=== PATIENT | male | born 1945 | race Caucasian/White ===

== ENCOUNTER 2024-04-03 14:26 | Outpatient (OUT) | payer OTHER, SELFPAY ==
--- NOTE | 2024-04-03 14:36 | ECG_ITS ---
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
[2024-04-03 15:18] LABS: Basophils Absolute Auto 0.1 10^3/uL (0.0-0.1); Basophils Percent Auto 1.7 % (0.2-2.0); Eosinophils Absolute Auto 0.7 10^3/uL (0.0-0.7); Eosinophils Percent Auto 10.4 % (0.9-7.0); Hematocrit 43.8 % (42.0-54.0); Hemoglobin 15.1 g/dL (14.0-18.0); Immature Granulocytes Abs Auto 0.01 10^3/uL (0.00-0.03); Immature Granulocytes Pct Auto 0.2 % (0.0-0.5); Lymphocytes Absolute Auto 1.4 10^3/uL (1.2-3.8); Lymphocytes Percent Auto 22.6 % (20.5-60.0); Mean Corpuscular HGB Conc 34.5 g/dL (29.9-35.2); Mean Corpuscular Volume 98.6 fL (80.0-94.0); Monocytes Absolute Auto 0.5 10^3/uL (0.3-0.8); Monocytes Percent Auto 8.1 % (1.7-12.0); Neutrophils Absolute Auto 3.6 10^3/uL (1.4-6.5); Platelet Count 153 10^3/uL (150-450); Red Blood Count 4.44 10^6/uL (4.70-6.10); Red Cell Distribution Width 12.8 % (11.0-15.0); White Blood Count 6.3 10^3/uL (4.0-11.0)
[2024-04-03 15:31] LABS: Anion Gap 9.3; BUN Creatinine Ratio 14.4; Calcium 9.1 mg/dL (8.5-10.1); Carbon Dioxide 30.7 mmol/L (21.0-32.0); Chloride 106 mmol/L (98-107); Estimated GFR (African America >60 (>=60); Estimated GFR (Non-African Ame >60 (>=60); Glucose 136 mg/dL (74-106); Sodium 142 mmol/L (136-145)
[2024-04-03 15:35] LABS: INR 1.04
== END 2024-04-03 14:27 | disposition home or self-care (01) ==
PROVIDERS: Family Provider Family Medicine; PCP Family Medicine; Visit Provider Urology
DX: Z01.810 Encounter for preprocedural cardiovascular examination (principal); Z01.812 Encounter for preprocedural laboratory examination; N20.0 Calculus of kidney
CPT/HCPCS: 80048; 85025; 85610; 85730; 93005

== ENCOUNTER 2024-04-10 07:47 | Day surgery (SDC) | payer OTHER, SELFPAY ==
[2024-04-03 14:45] VITALS: BP 148/84; PULSE 63; TEMP 36.4; O2SAT 97; BMI 25.2
[2024-04-10] VITALS (10 sets, daily range): BP systolic 110–151; BP diastolic 60–84; PULSE 60–69; TEMP 36–36.3; O2SAT 94–98; BMI 25.2
--- NOTE | 2024-04-10 07:45 | XR_ITS ---
The [address] [address] Patient Name: JENNIFER JUNIOR MRN: [id number] date: 1945 Sex: M Assigned Patient Location: [facility] Current Patient Location: [facility] Accession/Order Number: [id number] Exam Date: 04/10/2024 07:50 Report Date: 04/10/2024 09:28 At the request of: SARAY SHANKS Procedure: XR abdomen 1V EXAMINATION: XR abdomen 1V HISTORY: kidney stones COMPARISON: No relevant comparison available. FINDINGS: KIDNEY/URETER - RIGHT: 2 small stones within inferior pole of kidney. KIDNEY/URETER - LEFT: 5 mm stone within mid body. PELVIS: 3 mm stone within lower right pelvis. BOWEL: No abnormal dilation or deviation. BONES: No acute abnormality. OTHER: Negative. No abnormal gaseous collections. XR/XR abdomen 1V IMPRESSION: 1. Bilateral nephrolithiasis. 2. Right pelvic phleboliths versus distal ureteral stone. No comparison studies. Electronically authenticated by: SUGAR WORLEY Date: 04/10/2024 09:28
--- OUTSIDE RECORDS SUMMARY | 2024-04-10 07:51 | XMS_ITS | CCD ---
Author Organization [facility] ion Partnership [facility] Care Team Providers Care Engine Dispatcher Name Role Phone MD Fawn Blair Primary Care Provider MD Jennifer Spicer Attending Provider [phone] Naomy Watson Unavailable FAWN BLAIR Primary Care Physician MD Fawn Blair Primary Care Provider MD Brent Smith Attending Provider Brent Smith Admitting Unavailable Brent Smith Attending Unavailable Fawn Blair Primary Care Unavailable Jennifer Spicer Admitting Unavailable Jennifer Spicer Attending Unavailable Fawn Blair Primary Care Unavailable JONAS, SURY Attending Unavailable WARSURY BROWN Attending Unavailable BRENT SMITH Referring Unavailable Brent SMITH Attending Unavailable Brent SMITH Attending Unavailable Brent SMITH Attending Unavailable Allergies Allergy Classification Reported Allergen(s) Allergy Type Date of Onset Reaction(s) Facility (1 source) No Known Medication Allergies; Translations: [No Known Medication Allergies] Propensity to adverse reactions (disorder) [facility] Repository Medications Current Medications Medication Drug Class(es) Dates Sig (Normalized) Sig (Original) acetaminophen 325 mg / oxyCODONE hydrochloride 5 mg oral tablet (2 sources) Opioid Agonist Start: 05-30-2017 take 1 tablet by mouth every four to six hours Oxycodone-Acetam inophen (Percocet) 5-325 mg tablet Active 1 TAB PO EVERY 4-6 HOURS May 30, 2017 ibuprofen 800 mg oral tablet (2 sources) Nonsteroidal Anti-inflammatory Drug Start: 05-30-2017 take 800 mg by mouth three times daily Ibuprofen Active 800 MG PO Three times daily May 30, 2017 12:43pm metFORMIN hydrochloride 850 mg oral tablet (4 sources) Biguanide Start: 03-26-2024 take 1 tablet by mouth twice daily metformin 850 mg Tab 850 mg = 1 tab(s), Oral, BID Start Date: 03/26/24 Status: Ordered Start: 05-30-2017 take 1 tablet by scotty twice daily metformin 500 mg Tab 500 mg = 1 tab(s), Oral, BID Start Date: 03/26/19 Status: Ordered potassium bicarbonate 20 meq effervescent oral tablet (2 sources) Start: 05-30-2017 Potassium Bica rb-Citric Acid (Effer-K) 20 mEq tablet, effervescent Active 20 MEQ PO Three times daily May 30, 2017 9:19am Vitamin B Complex oral capsule (2 sources) Start: 03-26-2019 take 1 capsule by mouth once daily Vitamin B Complex oral capsule 1 cap(s), Oral, Daily Start Date: 03/26/19 Status: Ordered Vitamin D Oral (2 sources) Start: 03-26-2019 Vitamin D Oral Oral Start Date: 03/26/19 Status: Ordered Completed/Discontinued Medications Medication Drug Class(es) Dates Sig (Normalized) Sig (Original) Effervescent Potassium 25 mEq oral tablet (2 sources) Start: 01-11-2024 take 1 tablet by mouth three times daily Effervescent Potassium 25 mEq oral tablet 25 mEq = 1 tab(s), Oral, TID, # 270 tab(s), Refills(s) 3, Pharmacy: [id number] [id number] [facility] [place], 177, cm, 10/18/22 14:44:00 EDT, Height/Length Dosing, 82, kg, 10/18/22 14:44:00 EDT, Weight Dosing Start Date: 01/11/24 Status: Ordered Start: 09-26-2022 take 1 tablet by scotty three times daily Effervescent Potassium 25 mEq oral tablet 25 mEq = 1 tab(s), Oral, TID, # 270 tab(s), Refills(s) 3, Pharmacy: [id number] [place], 177, cm, 08/31/21 13:51:00 EST, Height/Length Dosing, 82, kg, 08/31/21 13:51:00 EST, Weight Dosing Start Date: 09/26/22 Status: Ordered Problems Active Problems Problem Classification Problem Date Documented Date Episodic/Chronic Calculus of urinary tract (5 sources) History of calculus of kidney; Translations: [Personal history of urinary calculi] Onset: 10-18-2022 Episodic Genitourinary symptoms and ill-defined conditions (2 sources) Nocturia 03-01-2019 Episodic Hyperplasia of prostate (4 sources) Benign prostatic hypertrophy with outflow obstruction; Translations: [Benign prostatic hyperplasia with lower urinary tract symptoms] Onset: 10-18-2022 Chronic Joint disorders and dislocations; trauma-related (2 sources) Dislocation of acromioclavicular joint; Translations: [Unspecified dislocation of unspecified acromioclavicular joint, initial encounter] 05-30-2017 Episodic Other fractures (2 sources) Closed fracture of rib; Translations: [Fracture of one rib, unspecified side, initial encounter for closed fracture] 05-30-2017 Episodic Other nutritional; endocrine; and metabolic disorders (2 sources) Body mass index 25-29 - overweight 05-12-2020 Episodic Unclassified (1 source) Z23 - Encounter for immunization; Translations: [Z23 - Encounter for immunization] Onset: 11-15-2021 Past or Other Problems Problem Classification Problem Date Documented Da te Episodic/Chronic Immunizations and screening for infectious disease (2 sources) Encounter for immunization Onset: 06-16-2021 Resolved: 11-15-2021 Episodic Results Test Name Value Interpretation Reference Range Facility Urology Office/Clinic Noteon 03-26-2024 Urology Office/Clinic Note Urology Office/Clinic Note Chief Complaint 17 month follow up HPI Staff 17 mos f/u with metabolic workup. Metabolic workup 10/20/22. Prior OV: increased Effer-K 25 mEq to TID at prior OV. Previous Dx: hx of kidney stones, BPH with urinary obstruction. S/P TURP 11/24/14. *No other urologic meds. Dysuria: denies pain or burning Incomplete bladder emptying: denies Hematuria: denies visible blood Frequency: denies Urgency: denies Nocturia: 1x a night Stream: denies hesitancy, denies weak stream Leaking: denies Post void dripping: denies Wearing pads/ Depends: denies Urge incontinence: denies Stress incontinence: denies Incontinence without Sensory Awareness: denies Abdominal pain: denies Flank pain: denies Sexual complaints: denies History of Present Illness Tests reviewed: reviewed UA, 24hr urine, labs I have reviewed the previous health record information and history for this patient from Dr. Smith. I have reviewed and verified the staff HPI to be accurate for this encounter. Review of Systems PHQ Score Initial Depression Screen Score: 0 SCORE ROS - Provider Constitutional: denies weight loss, denies hot flashes. Eyes: denies eye problems. Gastrointestinal: denies nausea, denies vomiting. Cardiovascular: denies chest pain or angina. Integumentary: no dryness Musculoskeletal: denies musculoskeletal symptoms. ENMT: denies otolaryngeal symptoms. Respiratory: no shortness of breath. Heme/Lymph: denies easy bleeding tendency, denies easy bruising tendency. Psychiatric: no confusion, no anxiety. Genitourinary: See HPI. Physical Exam Vitals & Measurements HR: 62(Peripheral) RR: 16 BP: 136/76 HT: 70 in HT: 177 cm WT: 77.4 kg WT: 170.28 lb BMI: 24.71 General Appearance: alert, no distress, well nourished, well developed male. Assessment/Plan 1. History of kidney stones (Z87.442: Personal history of urinary calculi) 24hr urine completed 10/20/22 - very low total volume 900 mL. CMP 03/12/24 (ordered by PCP) - K 4.5 Taking Effer-K 25 mEq tid, increased from qd at prior OV. No recent imaging. Denies any pain or stone episodes recently. Unsure of what kind of stones he has formed previously, believes it may have been calcium. Recommended pt to update imaging to ensure no new stones have formed. Pt is willing to proceed. -Increase fluid intake -Cont Effer-K 25mEq tid -KUB now, going to [facility] after appt today. Will call pt with results. -1 yr w/ KUB 2. 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 IPSS 1. UA today negative for blood and infection. Not taking any BPH meds. Not voicing any urinary habit complaints. Follow-up With When Contact Information DIMITRIS SHIELDS, Brent Scherer, URL [facility] [address], [place] [address] [phone] Additional Instructions: 1 yr w/ KUB Patient Education Kidney Stones I, Charley Rivers, personally scribed for Dr. Smith on 03/26/2024 16:40:06. . Documentation recorded by the scribe, Charley Rivers, accurately reflects the services(s) I performed and decisions made by me. Authenticated by Dr. Smith on 03/26/2024 16:42:37. Problem List/Past Medical History Ongoing BMI 27.0-27.9,adult BPH with urinary obstruction History of kidney stones Nocturia Historical No qualifying data Procedure/Surgical History TURP - Transurethral resection of prostate (11/24/2014), Cystoscopy (11/16/2014), ESWL - Extracorporeal shockwave lithotripsy for renal calculus (09/12/2012), ESWL - Extracorporeal shockwave lithotripsy for renal calculus (09/24/2008). Medications Effervescent Potassium 25 mEq oral tablet, 25 mEq= 1 tab(s), Oral, TID, 3 refills metformin 850 mg Tab, 850 mg= 1 tab(s), Oral, BID Vitamin B Complex oral capsule, 1 cap(s), Oral, Daily Vitamin D Oral, Oral Allergies No Known Medication Allergies Social History Tobacco Never (less than 100 in lifetime), Former smoker, quit more than 30 days ago Tobacco Use:. Never Smokeless Tobacco Use:. Cigarettes, 03/26/2024 Family History Diabetes: Father. Immunizations Vaccine Date Status influenza virus vaccine, inactivated 05/10/2022 Recorded SARS-CoV-2 (COVID-19) [id number] 05/10/2022 Recorded SARS-CoV-2 (COVID-19) mRNA-1273 vaccine 11/15/2021 Recorded SARS-CoV-2 (COVID-19) mRNA-1273 vaccine 06/16/2021 Recorded influenza virus vaccine, inactivated 05/13/2021 Recorded influenza virus vaccine, inactivated 05/09/2021 Recorded SARS-CoV-2 (COVID-19) mRNA-1273 vaccine 10/07/2020 Recorded SARS-CoV-2 (COVID-19) mRNA-1273 vaccine 09/09/2020 Recorded influenza virus vaccine, inactivated 04/15/2020 Recorded pneumococcal 23-valent vaccine 05/19/2019 Recorded influenza virus vaccine, inactivated 05/19/2019 Recorded influenza virus vaccine, inactivated 05/06/2018 Recorded influenza virus vaccine, inactivated 06/07/2017 Rec (more content not included)... Normal [facility] Comment on above: Result Comment: Elec tronically Signed By: Brent SMITH MD\.br\Date and Time Signed: 03/26/24 16:42 EDT\.br\Electronically Co-Signed By: Charley Rivers\.br\Date and Time Co-Signed: 03/26/24 16:40 EDT XR ABDOMEN 1 VIEWon 03-26-20 XR ABDOMEN 1 VIEW Exam: XR - ABDOMEN 1 VIEW Reason for exam: Previous history of stones, no current complaints Prior comparative studies: None Findings: There is a 6 mm calcification projecting over the left mid pole kidney. There is a possible 2 mm calcification projecting over the left upper pole kidney. Bowel contents largely overlie the right kidney. There is moderate stool in the right colon. No bowel dilatation is identified. Advanced degenerative change of the lumbar spine noted. IMPRESSION: 1. Suspected left intrarenal calculi as described Electronically Signed Renny Garcia M.D. 2024-03-26 15:40:59 Normal Not Available 24 Hr Urine Uric Acidon 10-04 Uric Acid, 24 Hr Urine 506.7 Normal 136.1-771.1 [facility] Comment on above: Order Comment: URINE VOLUME (MILLILTERS): 900 Result Comment: Perf ormed at: - [facility] [place] [id number] Polysomnographer: Benedicto Ponce PhD, Phone: [phone] Performed By: #### C REA24, U24 NA, COL T V #### [place] [address] [place] #### URIC 24HRU, U24 CA, OXAL 24HRU, PHOS 24HRU, CITRIC UR, MAG 24HRU #### [facility] , Urine Uric Acid 56.3 mg/dL Normal Not Estab. [facility] Comment on above: Order Comment: URINE VOLUME (MILLILTERS): 900 Performed By: #### C REA24, U24 NA, COL T V #### [place] [address] [place] #### URIC 24HRU, U24 CA, OXAL 24HRU, PHOS 24HRU, CITRIC UR, MAG 24HRU #### [facility] , 24 hour urine sodium measure ment (moles/time)Ordered By: Brent Smith on 10-20-2022 Sodium (24H U) [Moles/Time] 93 mmol/24 40-[address] [facility] [address] biopsyOrdered By: Brent Smith on 10-20-2022 CT biopsy 24 Hours [facility] Calcium, 24Hr Urineon 2022 Calcium, Urine 11.7 mg/dL Normal Not Estab. [facility] Comment on above: Order Comment: URINE VOLUME (MILLILTERS): 900 Performed By: #### C REA24, U24 NA, COL T V #### [facility] [address] [place] [address] #### URIC 24HRU, U24 CA, OXAL 24HRU, PHOS 24HRU, CITRIC UR, MAG 24HRU #### [facility] , Calcium, Urine 24 Hr 105 Normal 0-320 [facility] Comment on above: Order Comment: URINE VOLUME (MILLILTERS): 900 Performed By: #### C REA24, U24 NA, COL T V #### [facility] [address] [place] [address] #### URIC 24HRU, U24 CA, OXAL 24HRU, PHOS 24HRU, CITRIC UR, MAG 24HRU #### [facility] , Citric Acid, Urine, 24 Houro n 10-20-2022 Citric Acid, Urine 1247 mg/L Normal Undefined [facility] Comment on above: Order Comment: URINE VOLUME (MILLILTERS): 900 Performed By: #### C REA24, U24 NA, COL T V #### [facility] [address] [place] [address] [place] #### URIC 24HRU, U24 CA, OXAL 24HRU, PHOS 24HRU, CITRIC UR, MAG 24HRU #### [facility] , Citric Acid, Urine, 24HR 1122 Normal 320-1240 [facility] Comment on above: Order Comment: URINE VOLUME (MILLILTERS): 900 Result Comment: This test was developed and its performance characteristics determined by [facility]. It has not been cleared or approved by the Food and Drug Administration. Performed at: [address] [id number] Polysomnographer: Kristel Valdez MD, Phone: [phone] PERFORMED BY: [place] [address] PATHOLOGIST [employer] HAILEY JUDD M.D. Performed By: #### C REA24, U24 NA, COL T V #### [address] #### URIC 24HRU, U24 CA, OXAL 24HRU, PHOS 24HRU, CITRIC UR, MAG 24HRU #### [facility] , Creatinine [Mass/volume] in UrineOrdered By: Brent Smith on 10-20-2022 Creatinine (U) [Mass/Vol] 129.00 mg/dL [facility] Comment on above: No reference range e stablished Creatinine, 24 Hr Urineon Creatinine 24 Hour, Urine 1.16 Normal 1.00-2.09 [facility] Comment on above: Order Comment: URINE COLLECTION TIME (HRS): 24 URINE VOLUME (MILLILTERS): 900 Performed By: #### C REA24, U24 NA, COL T V #### [address] #### URIC 24HRU, U24 CA, OXAL 24HRU, PHOS 24HRU, CITRIC UR, MAG 24HRU #### [facility] , Creatinine, Urine 129.00 mg/dL Normal [facility] Comment on above: Order Comment: URINE COLLECTION TIME (HRS): 24 URINE VOLUME (MILLILTERS): 900 Result Comment: No r eference range established Performed By: #### C REA24, U24 NA, COL T V #### [place] [address] [place] #### URIC 24HRU, U24 CA, OXAL 24HRU, PHOS 24HRU, CITRIC UR, MAG 24HRU #### [facility] , Magnesium, Urine 24Hron 10-04 Magnesium, 24Hr Urine 81.0 Normal 12.0-293.[address] [facility] Comment on above: Order Comment: URINE VOLUME (MILLILTERS): 900 Performed By: #### C REA24, U24 NA, COL T V #### [facility] [address] [place] [address] #### URIC 24HRU, U24 CA, OXAL 24HRU, PHOS 24HRU, CITRIC UR, MAG 24HRU #### [facility] , Magnesium, Urine 9.0 mg/dL Normal Not Estab. [facility] Comment on above: Order Comment: URINE VOLUME (MILLILTERS): 900 Performed By: #### C REA24, U24 NA, COL T V #### [address] #### URIC 24HRU, U24 CA, OXAL 24HRU, PHOS 24HRU, CITRIC UR, MAG 24HRU #### [facility] , No Panel InformationOrdered By: Brent Smith on 10-20-2022 Urine Creatinine 24 Hour 1.16 g/24 hr 1.00-2.09 [facility] Oxalate, Quant, 24Hr Urineon 10-20-2022 Oxalates, Urine 28 mg/L Normal Undefined [facility] Comment on above: Order Comment: URINE VOLUME (MILLILTERS): 900 Performed By: #### C REA24, U24 NA, COL T V #### [facility] [address] [place] [address] #### URIC 24HRU, U24 CA, OXAL 24HRU, PHOS 24HRU, CITRIC UR, MAG 24HRU #### [facility] , Oxalates, Urine 24Hr 25 Normal 7-44 [facility] Comment on above: Order Comment: URINE VOLUME (MILLILTERS): 900 Result Comment: Perf ormed at: - [facility] [id number] Polysomnographer: Kristel Valdez MD, Phone: [phone] Performed By: #### C REA24, U24 NA, COL T V #### [facility] [address] [place] [address] [place] #### URIC 24HRU, U24 CA, OXAL 24HRU, PHOS 24HRU, CITRIC UR, MAG 24HRU #### [facility] , Phosphorus, 24Hr Urineon Phosphorous, Urine 63.8 mg/dL Normal Not Estab. [facility] Comment on above: Order Comment: URINE VOLUME (MILLILTERS): 900 Performed By: #### C REA24, U24 NA, COL T V #### [address] #### URIC 24HRU, U24 CA, OXAL 24HRU, PHOS 24HRU, CITRIC UR, MAG 24HRU #### [facility] , Phosphorus, Urine 24Hr 574 Normal 390-1425 [facility] Comment on above: Order Comment: URINE VOLUME (MILLILTERS): 900 Performed By: #### C REA24, U24 NA, COL T V #### [address] #### URIC 24HRU, U24 CA, OXAL 24HRU, PHOS 24HRU, CITRIC UR, MAG 24HRU #### [facility] , Sodium [Moles/volume] in Uri neOrdered By: Brent Smith on 10-20-2022 Sodium (U) [Moles/Vol] 103.0 mmol/L Normal [facility] Comment on above: No reference range e stablished Order Comment: URINE COLLECTION TIME (HRS): 24 URINE VOLUME (MILLILTERS): 900 Result Comment: No r eference range established Performed By: #### C REA24, U24 NA, COL T V #### [place] [address] [place] #### URIC 24HRU, U24 CA, OXAL 24HRU, PHOS 24HRU, CITRIC UR, MAG 24HRU #### [facility] , Sodium, 24 Hr Urineon 2022 Sodium 24 Hour Urine 93 Normal 40-220 [facility] Comment on above: Order Comment: URINE COLLECTION TIME (HRS): 24 URINE VOLUME (MILLILTERS): 900 Performed By: #### C REA24, U24 NA, COL T V #### [facility] [address] [place] [address] #### URIC 24HRU, U24 CA, OXAL 24HRU, PHOS 24HRU, CITRIC UR, MAG 24HRU #### [facility] , U24 Keven Time and Volon 10-04 Total Volume, Urine 900 Normal [facility] Comment on above: Order Comment: URINE COLLECTION TIME (HRS): 24 URINE VOLUME (MILLILTERS): 900 Result Comment: PERF ORMED BY: [place] [address] PATHOLOGIST [employer] HAILEY JUDD M.D. Performed By: #### C REA24, U24 NA, COL T V #### [address] #### URIC 24HRU, U24 CA, OXAL 24HRU, PHOS 24HRU, CITRIC UR, MAG 24HRU #### [facility] , Urine Collection Time 24 Normal [facility] Comment on above: Order Comment: URINE COLLECTION TIME (HRS): 24 URINE VOLUME (MILLILTERS): 900 Performed By: #### C REA24, U24 NA, COL T V #### [address] #### URIC 24HRU, U24 CA, OXAL 24HRU, PHOS 24HRU, CITRIC UR, MAG 24HRU #### [facility] , Urine volume measurementOrde red By: Brent Smith on 10-20-2022 Specimen volume (U) 900 ml [facility] Vital Signs Date Time Vital Sign Value Performing Clinician Faci lity 03-26-2024 16:07-0400 Blood Pressure Location Brent SMITH [facility] 03-26-2024 16:07-0400 Diastolic blood pressure 76 mm[Hg] Brent SMITH [facility] 03-26-2024 16:07-0400 Heart rate 62 /min Brent SMITH [facility] 03-26-2024 16:07-0400 Respiratory rate 16 /min Brent SMITH [facility] 03-26-2024 16:07-0400 Systolic blood pressure 136 mm[Hg] Brent SMITH [facility] 10-18-2022 14:34-0400 Blood Pressure Location Brent SMITH [facility] 10-18-2022 14:34-0400 Diastolic blood pressure 80 mm[Hg] Brent SMITH [facility] 10-18-2022 14:34-0400 Heart rate 75 /min Brent SMITH [facility] 10-18-2022 14:34-0400 Systolic blood pressure 132 mm[Hg] Brent SMITH [facility] Encounters Encounter Date Encounter Type Care Provider Facility Start: 03-25-2025 ambulatory Brent SMITH Facili ty:[facility] Start: 04-10-2024 ambulatory Brent SMITH Facili ty:CD:[id number] Start: 03-26-2024 End: 03-26-2024 ambulatory BRENT SMITH Not Available Start: 03-26-2024 End: 03-26-2024 ambulatory Brent SMITH Facility:[facility] Start: 03-26-2024 End: 03-26-2024 Patient encounter procedure Brent SMITH [facility] Start: 03-10-2024 End: 03-10-2024 ambulatory SURY WARCHOL Not Available Start: 12-18-2023 End: 12-18-2023 ambulatory SURY WARCHOL Not Available Start: 12-14-2023 End: 12-14-2023 ambulatory SURY WARCHOL Not Available Start: 10-20-2022 End: 10-20-2022 ambulatory Brent Smith Facility:[facility] Start: 10-20-2022 End: 10-20-2022 ambulatory MD Fawn Blair Work Phone: [facility] Work Phone: Start: 10-20-2022 End: 10-20-2022 Patient encounter procedure MD Fawn Blair Work Phone: [facility] Work Phone: Start: 10-18-2022 End: 10-18-2022 Patient encounter procedure Brent SMITH [facility] Start: 11-15-2021 ([facility] C Vac) [facility] Co vid Vaccine Naomy Watson [facility] Start: 11-15-2021 End: 11-15-2021 ambulatory Jennifer Spicer [facility] Other Start: 11-15-2021 End: 11-15-2021 Patient encounter procedure MD Fawn Blair Work Phone: [facility] Off Site Start: 06-16-2021 ([facility] C Vac) [facility] Co vid Vaccine Naomy Watson [facility] Start: 06-16-2021 End: 06-16-2021 ambulatory Naomy Watson Other [facility] Other Procedures Date Procedure Procedure Detail Performing Clinician Start: 11-24-2014 Transurethral prostatectomy Brent SMITH Start: 11-16-2014 Cystoscopy Brent HAYWARD Start: 09-12-2012 Extracorporeal shock wave lithotripsy of calculus of kidney Brent SMITH Comment on above: LEFT Start: 09-24-2008 Extracorporeal shock wave lithotripsy of calculus of kidney Brent SMITH Comment on above: stone basket extract ions x2, cysto stent placement on 09/03/2008 Plan of Treatment Date Care Activity Detail Author Start: 10-20-2022 [facility] Oxalate [Mass/time] in 24 hour Urine [facility] Immunizations Immunization Date Immunization Notes Care Provider Jose glover 05-10-2022 influenza virus vacc ine, unspecified formulation Brent SMITH [facility] 05-10-2022 SARS-CoV-2 (COVID-19 ) [id number] Brent SMITH [facility] 11-15-2021 COVID-19 Moderna Naomy Fitt Other [facility] 06-16-2021 COVID-19 Moderna Naomy Fitt Other [facility] 05-13-2021 influenza virus vacc ine, unspecified formulation Brent SMITH [facility] 05-09-2021 influenza virus vacc ine, unspecified formulation Brent SMITH [facility] 10-07-2020 COVID-19 mRNA-1273 (Dylon) MD Fawn Blair Work Phone: [facility] 09-09-2020 COVID-19 mRNA-1273 (Dylon) MD Fawn Blair Work Phone: [facility] 04-15-2020 influenza virus vacc ine, unspecified formulation Brent SMITH [facility] 05-19-2019 influenza virus vacc ine, unspecified formulation Brent SMITH [facility] 05-19-2019 pneumococcal polysaccharide vaccine, 23 valent Brent SMITH [facility] 05-06-2018 influenza virus vacc ine, unspecified formulation Brent SMITH [facility] 06-07-2017 influenza virus vacc ine, unspecified formulation Brent SMITH [facility] 04-21-2017 influenza virus vacc ine, unspecified formulation Brentraoul SMITH [facility] 04-09-2016 influenza virus vacc ine, unspecified formulation Brent SMITH [facility] Payers Date Payer Category Payer Medicare [id number] 2021 Self-pay [id number] 1945 Unknown [id number] 2.16.84 [id number] 1944 Unknown [id number] 2.16.84 [id number] 1944 Unknown [id number] 2.16.84 [id number] 1944 Unknown [id number] 2.16.84 [id number] 1944 Unknown [id number] 2.16.8 [id number] 1945 Unknown [id number] 2.16.8 [id number] Medicare [id number] Private Health Insurance [id number] Unknown [id number] Unknown [id number] Unknown [id number] Social History Date Type Detail Facility Start: 05-30-2017 Tobacco smoking stat [facility] Smoker (finding) [facility] Start: 1945 Sex Assigned At Male F [facility] Sex Assigned At [facility] Start: 10-18-2022 End: 03-26-2024 Tobacco smoking status Never smoked tobacco (finding) [facility] Tobacco smoking status Never [facility] Tobacco smoking status Ex-smoker (finding ) [facility] Functional Status Date Assessment Result Facility 03-26-2024 Functional Status N/A [facility] 10-18-2022 Functional Status N/A [facility] Hospital Discharge instructions 03-26-2024 Note Date & Type Note Facility 03-26-2024 Hospital Discharg e instructions Patient Education 03/26/2024 16:37:37 Kidney Stones Kidney Stones Kidney stones are solid, rock-like deposits that form inside of the kidneys. The kidneys are a pair of organs that make urine. A kidney stone may form in a kidney and move into other parts of the urinary tract, including the tubes that connect the kidneys to the bladder (ureters), the bladder, and the tube that carries urine out of the body (urethra). As the stone moves through these areas, it can cause intense pain and block the flow of urine. Kidney stones are created when high levels of certain minerals are found in the urine. The stones are usually passed out of the body through urination, but in some cases, medical treatment may be needed to remove them. What are the causes? Kidney stones may be caused by: A condition in which certain glands produce too much parathyroid hormone (primary hyperparathyroidism), which causes too much calcium buildup in the blood. A buildup of uric acid crystals in the bladder (hyperuricosuria). Uric acid is a chemical that the body produces when you eat certain foods. It usually leaves the body in the urine. Narrowing (stricture) of one or both of the ureters. A kidney blockage that is present at (congenital obstruction). Past surgery on the kidney or the ureters. What increases the risk? The following factors may make you more likely to develop this condition: Having had a kidney stone in the past. Having a family history of kidney stones. Not drinking enough water. Eating a diet that is high in protein, salt (sodium), or sugar. Being overweight or obese. What are the signs or symptoms? Symptoms of a kidney stone may include: Pain in the side of the abdomen, right below the ribs (flank pain). Pain usually spreads (radiates) to the groin. Needing to urinate often or urgently. Painful urination. Blood in the urine (hematuria). Nausea. Vomiting. Fever and chills. How is this diagnosed? This condition may be diagnosed based on: Your symptoms and medical history. A physical exam. Blood tests. Urine tests. These may be done before and after the stone passes out of your body through urination. Imaging tests, such as a CT scan, abdominal X-ray, or ultrasound. A procedure to examine the inside of the bladder (cystoscopy). How is this treated? Treatment for kidney stones depends on the size, location, and makeup of the stones. Kidney stones will often pass out of the body through urination. You may need to: Increase your fluid intake to help pass the stone. In some cases, you may be given fluids through an IV and may need to be monitored in the hospital. Take medicine for pain. Make changes in your diet to help prevent kidney stones from coming back. Sometimes, procedures are needed to remove a kidney stone. This may involve: A procedure to break up kidney stones using: ?A focused beam of light (laser therapy). ?Shock waves (extracorporeal shock wave lithotripsy). Surgery to remove kidney stones. This may be needed if you have severe pain or have stones that block your urinary tract. Follow these instructions at home: Medicines Take sdpf-prr-nwbcalb and prescription medicines only as told by your health care provider. Ask your health care provider if the medicine prescribed to you requires you to avoid driving or using heavy machinery. Eating and drinking Drink enough fluid to keep your urine pale yellow. You may be instructed to drink at least 8 10 glasses of water each day. This will help you pass the kidney stone. If directed, change your diet. This may include: ?Limiting how much sodium you eat. ?Eating more fruits and vegetables. ?Limiting how much animal protein you eat. Animal proteins include red meat, poultry, fish, and eggs. ?Eating a normal amount of calcium (1,000 1,300 mg per day). Follow instructions from your health care provider about eating or drinking restrictions. General instructions Collect urine samples as told by your health care provider. You may need to collect a urine sample: ?24 hours after you pass the stone. ?8 12 weeks after you pass the kidney stone, and every 6 12 months after that. Strain your urine every time you urinate, for as long as directed. Use the strainer that your health care provider recommends. Do not throw out the kidney stone after passing it. Keep the stone so it can be tested by your health care provider. Testing the makeup of your kidney stone may help prevent you from getting kidney stones in the future. Keep all follow-up visits. You may need follow-up X-rays or ultrasounds to make sure that your stone has passed. How is this prevented? To prevent another kidney stone: Drink enough fluid to keep your urine pale yellow. This is the best way to prevent kidney stones. Eat a healthy diet. Follow recommendations from your health care provider about foods to avoid. Recommendations vary depending on the type of kidney stone that you have. You may be instructed to eat a low-protein diet. Maintain a healthy weight. Where to find more information National Kidney Foundation (NKF): www.kidney.org U[employer] (UCF): www.urologyhealth.org Contact a health care provider if: You have pain that gets worse or does not get better with medicine. Get help right away if: You have a fever or chills. You develop severe pain. You develop new abdominal pain. You faint. You are unable to urinate. Summary Kidney stones are solid, rock-like deposits that form inside of the kidneys. Kidney stones can cause nausea, vomiting, blood in the urine, abdominal pain, and the urge to urinate often. Treatment for kidney stones depends on the size, location, and makeup of the stones. Kidney stones will often pass out of the body through urination. Kidney stones can be prevented by drinking enough fluids, eating a healthy diet, and maintaining a healthy weight. This information is not intended to replace advice given to you by your health care provider. Make sure you discuss any questions you have with your health care provider. Document Revised: 11/01/2022 Document Reviewed: 11/01/2022 [employer] Patient Education 2022 [employer]. Follow Up Care 10/18/2022 15:04:11 With:DIMITRIS SHIELDS, Brent Scherer, VINAYAK Address: [facility] [address] , [place] [address]- [id number] When: Unknown Comments:1 yr [facility] Clinical Note 03-26-2024 Note Date & Type Note Facility 03-26-2024 Note Patient Education Urology Kidney Stones Kidney stones are solid, rock-like deposits that form inside of the kidneys. The kidneys are a pair of organs that make urine. A kidney stone may form in a kidney and move into other parts of the urinary tract, including the tubes that connect the kidneys to the bladder (ureters), the bladder, and the tube that carries urine out of the body (urethra). As the stone moves through these areas, it can cause intense pain and block the flow of urine. Kidney stones are created when high levels of certain minerals are found in the urine. The stones are usually passed out of the body through urination, but in some cases, medical treatment may be needed to remove them. What are the causes? Kidney stones may be caused by: ? A condition in which certain glands produce too much parathyroid hormone (primary hyperparathyroidism), which causes too much calcium buildup in the blood. ? A buildup of uric acid crystals in the bladder (hyperuricosuria). Uric acid is a chemical that the body produces when you eat certain foods. It usually leaves the body in the urine. ? Narrowing (stricture) of one or both of the ureters. ? A kidney blockage that is present at (congenital obstruction). ? Past surgery on the kidney or the ureters. What increases the risk? The following factors may make you more likely to develop this condition: ? Having had a kidney stone in the past. ? Having a family history of kidney stones. ? Not drinking enough water. ? Eating a diet that is high in protein, salt (sodium), or sugar. ? Being overweight or obese. What are the signs or symptoms? Symptoms of a kidney stone may include: ? Pain in the side of the abdomen, right below the ribs (flank pain). Pain usually spreads (radiates) to the groin. ? Needing to urinate often or urgently. ? Painful urination. ? Blood in the urine (hematuria). ? Nausea. ? Vomiting. ? Fever and chills. How is this diagnosed? This condition may be diagnosed based on: ? Your symptoms and medical history. ? A physical exam. ? Blood tests. ? Urine tests. These may be done before and after the stone passes out of your body through urination. ? Imaging tests, such as a CT scan, abdominal X-ray, or ultrasound. ? A procedure to examine the inside of the bladder (cystoscopy). How is this treated? Treatment for kidney stones depends on the size, location, and makeup of the stones. Kidney stones will often pass out of the body through urination. You may need to: ? Increase your fluid intake to help pass the stone. In some cases, you may be given fluids through an IV and may need to be monitored in the hospital. ? Take medicine for pain. ? Make changes in your diet to help prevent kidney stones from coming back. Sometimes, procedures are needed to remove a kidney stone. This may involve: ? A procedure to break up kidney stones using: ? A focused beam of light (laser therapy). ? Shock waves (extracorporeal shock wave lithotripsy). ? Surgery to remove kidney stones. This may be needed if you have severe pain or have stones that block your urinary tract. Follow these instructions at home: Medicines ? Take lvqv-jnn-ptjrgek and prescription medicines only as told by your health care provider. ? Ask your health care provider if the medicine prescribed to you requires you to avoid driving or using heavy machinery. Eating and drinking ? Drink enough fluid to keep your urine pale yellow. You may be instructed to drink at least 8?10 glasses of water each day. This will help you pass the kidney stone. ? If directed, change your diet. This may include: ? Limiting how much sodium you eat. ? Eating more fruits and vegetables. ? Limiting how much animal protein you eat. Animal proteins include red meat, poultry, fish, and eggs. ? Eating a normal amount of calcium (1,000?1,300 mg per day). ? Follow instructions from your health care provider about eating or drinking restrictions. General instructions ? Collect urine samples as told by your health care provider. You may need to collect a urine sample: ? 24 hours after you pass the stone. ? 8?12 weeks after you pass the kidney stone, and every 6?12 months after that. ? Strain your urine every time you urinate, for as long as directed. Use the strainer that your health care provider recommends. ? Do not throw out the kidney stone after passing it. Keep the stone so it can be tested by your health care provider. Testing the makeup of your kidney stone may help prevent you from getting kidney stones in the future. ? Keep all follow-up visits. You may need follow-up X-rays or ultrasounds to make sure that your stone has passed. How is this prevented? To prevent another kidney stone: ? Drink enough fluid to keep your urine pale yellow. This is the best way to prevent kidney stones. ? Eat a healthy diet. Follow r (more content not included)... [facility] Discharge instructions 10-18-2022 Note Date & Type Note Facility 10-18-2022 Hospital Discharg e instructions Patient Education 10/18/2022 15:02:13 Dietary Guidelines to Help Prevent Kidney Stones Dietary Guidelines to Help Prevent Kidney Stones Kidney stones are deposits of minerals and salts that form inside your kidneys. Your risk of developing kidney stones may be greater depending on your diet, your lifestyle, the medicines you take, and whether you have certain medical conditions. Most people can reduce their chances of developing kidney stones by following the instructions below. Depending on your overall health and the type of kidney stones you tend to develop, your dietitian may give you more specific instructions. What are tips for following this plan? Reading food labels Choose foods with no salt added or low-salt labels. Limit your sodium intake to less than 1500 mg per day. Choose foods with calcium for each meal and snack. Try to eat about 300 mg of calcium at each meal. Foods that contain 200 500 mg of calcium per serving include: ?8 oz (237 ml) of milk, fortified nondairy milk, and fortified fruit juice. ?8 oz (237 ml) of kefir, yogurt, and soy yogurt. ?4 oz (118 ml) of tofu. ?1 oz of cheese. ?1 cup (300 g) of dried figs. ?1 cup (91 g) of cooked broccoli. ?1 3 oz can of sardines or mackerel. Most people need 1000 to 1500 mg of calcium each day. Talk to your dietitian about how much calcium is recommended for you. Shopping Buy plenty of fresh fruits and vegetables. Most people do not need to avoid fruits and vegetables, even if they contain nutrients that may contribute to kidney stones. When shopping for convenience foods, choose: ?Whole pieces of fruit. ?Premade salads with dressing on the side. ?Low-fat fruit and yogurt smoothies. Avoid buying frozen meals or prepared deli foods. Look for foods with live cultures, such as yogurt and kefir. Cooking Do not add salt to food when cooking. Place a salt shaker on the table and allow each person to add his or her own salt to taste. Use vegetable protein, such as beans, textured vegetable protein (TVP), or tofu instead of meat in pasta, casseroles, and soups. Meal planning Eat less salt, if told by your dietitian. To do this: ?Avoid eating processed or premade food. ?Avoid eating fast food. Eat less animal protein, including cheese, meat, poultry, or fish, if told by your dietitian. To do this: ?Limit the number of times you have meat, poultry, fish, or cheese each week. Eat a diet free of meat at least 2 days a week. ?Eat only one serving each day of meat, poultry, fish, or seafood. ?When you prepare animal protein, cut pieces into small portion sizes. For most meat and fish, one serving is about the size of one deck of cards. Eat at least 5 servings of fresh fruits and vegetables each day. To do this: ?Keep fruits and vegetables on hand for snacks. ?Eat 1 piece of fruit or a handful of berries with breakfast. ?Have a salad and fruit at lunch. ?Have two kinds of vegetables at dinner. Limit foods that are high in a substance called oxalate. These include: ?Spinach. ?Rhubarb. ?Beets. ?Potato chips and guinean fries. ?Nuts. If you regularly take a diuretic medicine, make sure to eat at least 1 2 fruits or vegetables high in potassium each day. These include: ?Avocado. ?Banana. ?[place], prune, carrot, or tomato juice. ?Baked potato. ?Cabbage. ?Beans and split peas. General instructions Drink enough fluid to keep your urine clear or pale yellow. This is the most important thing you can do. Talk to your health care provider and dietitian about taking daily supplements. Depending on your health and the cause of your kidney stones, you may be advised: ?Not to take supplements with vitamin C. ?To take a calcium supplement. ?To take a daily probiotic supplement. ?To take other supplements such as magnesium, fish oil, or vitamin B6. Take all medicines and supplements as told by your health care provider. Limit alcohol intake to no more than 1 drink a day for non women and 2 drinks a day for men. One drink equals 12 oz of beer, 5 oz of wine, or 1 oz of hard liquor. Lose weight if told by your health care provider. Work with your dietitian to find strategies and an eating plan that works best for you. What foods are not recommended? Limit your intake of the following foods, or as told by your dietitian. Talk to your dietitian about specific foods you should avoid based on the type of kidney stones and your overall health. Grains Breads. Bagels. Rolls. Baked goods. Salted crackers. Cereal. Pasta. Vegetables Spinach. Rhubarb. Beets. Canned vegetables. Pickles. Olives. Meats and other protein foods Nuts. Nut butters. Large portions of meat, poultry, or fish. Salted or cured meats. Deli meats. Hot dogs. Sausages. Dairy Cheese. Beverages Regular soft drinks. Regular vegetable juice. Seasonings and other foods Seasoning blends with salt. Salad dressings. Canned soups. Soy sauce. Ketchup. Barbecue sauce. Canned pasta sauce. Casseroles. Pizza. Lasagna. Frozen meals. Potato chips. [place]riot fries. Summary You can reduce your risk of kidney stones by making changes to your diet. The most important thing you can do is drink enough fluid. You should drink enough fluid to keep your urine clear or pale yellow. Ask your health care provider or dietitian how much protein from animal sources you should eat each day, and also how much salt and calcium you should have each day. This information is not intended to replace advice given to you by your health care provider. Make sure you discuss any questions you have with your health care provider. Document Released: 11/17/2011 Document Revised: 11/12/2019 Document Reviewed: 07/03/2017 [employer] Patient Education 2020 [employer]. Follow Up Care 08/31/2021 14:06:16 With:Brent SMITH MD, URL Address: [facility] [address], [place] [address]- When: Unknown [facility] Evaluation note 11-15-2021 Note Date & Type Note Facility 11-15-2021 Evaluation note Encounter Date Diagnosis Assessment Notes Nov, Encounter for immunization (ICD-10 - Z23) Patient presents for COVID-19 vaccination BOOSTER. Pre-screening form answers evaluated with patient. Patient denies current illness or allergic reaction to component of COVID-19 vaccine. Patient provided with current copy of EUA. [facility] Other Evaluation + Plan note Note Date & Type Note Facility Evaluation + Plan note Future Appointments Appointment Date:10/17/2023 01:45:00 PM Scheduled Provider:Brent SMITH MD Location:[facility] Appointment Type:URO Office Visit [facility] Evaluation + Plan note Note Date & Type Note Facility Evaluation + Plan note Future Appointments Appointment Date:03/25/2025 02:15:00 PM Scheduled Provider:Brent SMITH MD Location:[facility] Appointment Type:URO Office Visit [facility] Evaluation note Note Date & Type Note Facility Evaluation note No assessment information availa [facility] Work Phone: Evaluation note Note Date & Type Note Facility Evaluation note [facility] Other Hospital course Narrative Note Date & Type Note Facility Hospital course Narrative No data available for this section [facility] Progress note Note Date & Type Note Facility Progress note No data available for this section [facility] Chief Complaint and Reason for Visit Chief Complaint Booster #2 Chief Complaint spes drop Advance Directives No Advanced Directives Records Found Advance Directive Response Recorded Date/ Time Advance Directives No May 30, 2017 9:57am Summary Purpose Family History No Family History Records Found No data available for this section No Family History Records FoundNo Family History Records Found Additional Source Comments Care Teams (unrecognized sec tion and content) Team Status: Inactive Member Role Status Rivka Blair MD Primary Care Provider Active Jennifer Spicer MD Attending Provider Active Team Status: Active Member Role Status Rivka Blair MD Primary Care Provider Active Team Status: Inactive Member Role Status Rivka Blair MD Primary Care Provider Active Brent Smith MD Attending Provider Active Goals (unrecognized section and content) Goals may be documented in a n alternate sectionNo Information No data available for this sectionGoals may be documented in an alternate section No data available for this section REASON FOR VISIT (unrecogniz ed section and content) MODERNA VACCINE BOOSTER-2 (unrecognized sect ion and content) No Status Records FoundNo Status Records FoundNo Status Records Found INFORMATION SOURCE (unrecogn ized section and content) DATE CREATED AUTHOR 11/06/[address] [facility] DATE CREATED AUTHOR AUTHOR'S ORGANIZ ATION 03/31/2024 [facility] DATE CREATED AUTHOR AUTHOR'S ORGANIZ ATION 04/02/2024 [facility] FOR RECORDS PERTAINING TO PATIENTS WHO ARE OR HAVE BEEN ENROLLED IN A CHEMICAL DEPENDENCY/SUBSTANCEABUSE PROGRAM, SOME INFORMATION MAY BE OMITTED. This clinical summary was aggregated from multiple sources. Caution should be exercised in using it in the provision of clinical care. This summary normalizes information from multiple sources, and as a consequence, information in this document may materially change the coding, format and clinical context of patient data. In addition, data may be omitted in some cases. CLINICAL DECISIONS SHOULD BE BASED ON THE PRIMARY CLINICAL RECORDS. [facility], [facility]. provides no warranty or guarantee of the accuracy or completeness of information in this document.
[2024-04-10] MEDS: LACTATED RINGER'S SOLUTION 1,000 ML 50 ML IV (08:23)
[2024-04-10] MEDS: CEFAZOLIN SODIUM 1 GM/50 ML D5W PREMIX IV (08:24)
[2024-04-10 08:25] LABS: Glucometer 132 mg/dL (74-106)
--- NOTE | 2024-04-10 09:10 | PM.URSON ---
Urology Surgery Operative Note Operative Note Procedure Date: 04/10/24 Time Out Performed: yes Pre-op Diagnosis: Left nephrolithiasis Post-op Diagnosis: same as pre-op Procedures performed: 1. Left ESWL. Anesthesia: General-LMA Primary Surgeon: Brent Smith Complications: None Estimated blood loss (mL): 0 Findings: Dense left renal calculus Specimens: None Drains: None Indications for Procedures: This gentleman has a recurrent left renal stone. It is approximately 6 mm and highly calcified. He now presents for left ESWL. He has signed an informed consent after risks were explained. Some of these risks include bleeding, perinephric hematoma, infection and anesthesia to name a few. Detailed description of Procedure: The patient was brought to the Operating Room and placed on Siemens electromagnetic lithotripsy treatment table in the supine position. SCDs were placed on their lower extremities and turned on and functioning during the entire case. Timeout was done by all parties in the room. We all agreed upon the patient's identification and the planned procedures for this patient. General Anesthesia was then administered via LMA. Treatment head was then brought to the patient's left side. While using flourscopy the stone was identified and lined up into the crosshairs. We then began applying shocks. We started at a power level of 2.0 and increased to a maximum power level of 3.5. Intermittent fluoroscopy showed that the stone was slow to fragment. We did see fragmentation begin after 1500 shocks. We applied a total of 3000 shocks. We still had some solid stone remaining upon completion. The procedure was then terminated. He was then transferred to a [place] bed and wheeled to PACU in stable condition.
--- NOTE | 2024-04-10 09:33 | PC.NURSE ---
Bruising and redness noted left flank area
== END 2024-04-10 11:10 | disposition home or self-care (01) ==
PROVIDERS: Family Provider Family Medicine; PCP Family Medicine; Visit Provider Urology
PROC: (CPT 873; principal; 2024-04-10 08:45)
DX: N20.0 Calculus of kidney (principal); N40.1 Benign prostatic hyperplasia with lower urinary tract symptoms; R35.1 Nocturia; Z87.442 Personal history of urinary calculi; E11.9 Type 2 diabetes mellitus without complications; Z79.84 Long term (current) use of oral hypoglycemic drugs; Z87.891 Personal history of nicotine dependence
CPT/HCPCS: 50590; 36415; 74018; 82948; J0690; J1100; J1885; J2405; J2704; J3010